=== PATIENT | female | born 1945 | race Caucasian/White ===

== ENCOUNTER 2017-04-28 13:04 | Outpatient (CLI) | payer MEDICARE, BC ==
[2017-04-28] MEDS ORDERED: Iopamidol 370 76% 100 ML VIAL ONE (13:59)
--- NOTE | 2017-04-28 14:54 | CT ---
CT ANGIOGRAM OF CHEST: Date: 04/28/17 COMPARISON: 11/18/16. HISTORY: Positive PE study in January 2017. Follow-up. TECHNIQUE: CT angiogram of the chest is performed in the axial plane. Coronal and oblique three-dimensional refo rmatted images are submitted for interpretation. FINDINGS: Trachea and central bronchi are patent. Dependent atelectatic change lung bases. No mass. No consolid ation. No pneumothorax or osseous abnormalities. No mediastinal mass, lymphadenopathy, or hematoma. Heart size is within normal limits. No pericardial effusion. The thoracic aorta and upper abdominal aorta have a normal caliber. No periaortic fat stra nding. Hypodensities in the liver are redemonstrated, compatible with multiple hepatic cysts. Stable fullnes s of left adrenal gland. Adequate contrast opacification of the pulmonary arterial system to the level of the segmental arteri es. No filling defect to suggest thromboembolism. IMPRESSION: 1. No evidence of pulmonary artery embolism. 2. Fullness of left adrenal gland, unchanged. Incomplete evaluation on this current exam. The lesion has been previously documented to be an adenoma. POS: EPIFANIO
== END 2017-04-28 13:05 | disposition home or self-care (01) ==
LOC: CT 13:04
PROVIDERS: ATTEND Internal Medicine Critical Care Medicine
DX: I26.99 Other pulmonary embolism without acute cor pulmonale (principal); E27.8 Other specified disorders of adrenal gland
CPT/HCPCS: 71275

== ENCOUNTER 2017-12-30 12:09 | Outpatient (CLI) | payer MEDICARE, BC ==
--- NOTE | 2017-12-30 14:05 | MRI ---
NONCONTRAST MRI LUMBAR SPINE: DATE: 12/30/17. HISTORY: Lumbar radiculopathy. Chronic low back pain which is getting worse. FINDINGS: A 2.4 cm oval-shaped focus of increased T2 and corresponding decreased T1 weighted signal intensity i s seen within the superior pole right kidney which is difficult to accurately characterize but statis tically likely represents a renal cyst. There is a subcentimeter increased T2 weighted signal intens ity focus seen within the mid portion left kidney which cannot be further characterized. A few tiny subcentimeter increased T2 weighted signal intensity foci are also seen within the right hepatic lobe which are difficult to characterize but statistically also may represent hepatic cysts. There is in complete imaging of a left adrenal nodule, but this adrenal nodule was seen on a CT of the abdomen in 2005 and demonstrated characteristics compatible with an adrenal adenoma on that examination. The r enal lesion as well s tiny hepatic lesions were not visualized on the prior CT exam. There is left convex rotoscoliosis of the lumbar spine. There are multilevel degenerative changes pr esent. There is heterogeneity of the bone marrow which may be related to conversion to red marrow. There is a rounded area of increased T1 and T2 weighted signal intensity seen within the S1 vertebral body measuring 1.5 cm most compatible with a hemangioma. L1-2 level: There is a broad-based disk-osteophyte complex present with mild facet degenerative weber ges. Findings result in mild bilateral neural foraminal narrowing, and there is also mild narrowing of the central spinal canal. L2-3 level: There is loss of intervertebral disk height with end plate degenerative changes present. There is a broad-based disk-osteophyte complex and facet hypertrophic changes. Findings result in mild to moderate right and mild left-sided neural foraminal narrowing. There is mild narrowing of th e central spinal canal with a greater degree of mass effect on the right anterolateral aspect of the thecal sac and likely encroachment on the traversing right S3 nerve root. L3-4 level: There is loss of intervertebral disk height. There is a broad-based disk-osteophyte com plex and facet hypertrophic changes. There is resultant mild narrowing of the central spinal canal a nd narrowing of the lateral recesses, primarily on the right. There is mild bilateral neural foramin al narrowing. L4-5 level: There is loss of intervertebral disk height. There is a broad-based disk-osteophyte com plex noted. Severe left-sided facet hypertrophic changes are seen. There is moderate narrowing of t he central spinal canal as well as the left lateral recess with severe left-sided neural foraminal na rrowing and mild right-sided neural foraminal narrowing. L5-S1 level: There is a mild broad-based disk-osteophyte complex. There are facet hypertrophic weber ges present. The disk-osteophyte complex does encroach on and may contact the traversing left S1 ner ve root without significant deformity or displacement of the S1 nerve root. There is moderate left-s ided neural foraminal narrowing with minimal right-sided neural foraminal narrowing. Conus medullaris is normal in appearance and demonstrates normal signal intensity terminating at the T12-L1 level. IMPRESSION: 1. 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 2. Subcentimeter too small to characterize increased T2 weighted signal intensity lesions in the rig ht hepatic lobe and in the left kidney likely attributable to tiny cysts but are difficult to further characterize due to very small size. 4. Right renal cyst. POS: EPIFANIO
== END 2017-12-30 12:10 | disposition home or self-care (01) ==
LOC: BICMRI 12:09
PROVIDERS: ATTEND Anesthesiology Pain Medicine
DX: M47.26 Other spondylosis with radiculopathy, lumbar region (principal); M41.9 Scoliosis, unspecified; N28.1 Cyst of kidney, acquired
CPT/HCPCS: 72110; 72148

== ENCOUNTER 2019-12-22 13:12 | Outpatient (CLI) | payer MEDICARE, BC ==
--- NOTE | 2019-12-22 14:02 | ULT ---
US Renal Bilateral STANDARD HISTORY: Renal lesion COMPARISON: None. FINDINGS: Right kidney measures 8.3 cm in length and the left kidney measures 9.2 cm in length. No hy dronephrosis seen on either side. There is a 2.3 x 1.7 x 1.5 cm cyst in the superomedial aspect of the right kidney. The bladder has a volume of 73 cc and is grossly unremarkable. IMPRESSION: Right renal cyst.
== END 2019-12-22 13:13 | disposition home or self-care (01) ==
LOC: SCSULT 13:12
PROVIDERS: ATTEND Nurse Practitioner Family
DX: N28.9 Disorder of kidney and ureter, unspecified (principal); N28.1 Cyst of kidney, acquired
CPT/HCPCS: 76770

== ENCOUNTER 2022-04-29 08:42 | Day surgery (SDC) | payer MEDICARE, BC ==
[2022-04-28 11:57] VITALS: BMI 23.3
[~2022-04-29 08:42] MED LIST: EPINEPHrine 0.3 MG in Ophthalmic Irrigation Solution 500 ML IRR SCH; Midazolam HCl 2 mg/2 ml Vial ONE; fentaNYL PF 100 MCG/2 ML SYRINGE ONE
[2022-04-29] MEDS ORDERED: Phenylephrine 2.5% Ophth Soln 5 ML BOT ONE (09:32)
[2022-04-29] MEDS ORDERED: Cyclopentolate 1% Opth Drop 2 ML BOT ONE (09:32)
[2022-04-29] MEDS ORDERED: Triamcinolone 40 MG/ML VIAL ONE (10:56)
[2022-04-29] MEDS ORDERED: Indocyanine Green 25 MG/10 ML VIAL ONE (10:56)
[2022-04-29] MEDS ORDERED: Lidocaine 4% PF 5 ML AMP ONE (10:56)
[2022-04-29] MEDS ORDERED: Maxitrol 0.1% Opth Oint 3.5 GM TUBE ONE (10:56)
[2022-04-29] MEDS ORDERED: Lidocaine 1% PF 5 ML VIAL ONE (10:56)
[2022-04-29] MEDS ORDERED: PROPOFOL 200 MG/20 ML VIAL ONE (10:56)
[2022-04-29] MEDS ORDERED: Bupivacaine 0.75% 10 ML VIAL ONE (10:56)
[2022-04-29] MEDS ORDERED: CEFAZOLIN 1 GM VIAL ONE (10:56)
== END 2022-04-29 12:14 | disposition home or self-care (01) ==
LOC: SDC 08:42
PROVIDERS: ATTEND Ophthalmology Retina Specialist
PROC: 08T53ZZ Resection of Left Vitreous, Percutaneous Approach (ICD-10-PCS; principal; 2022-04-29)
DX: H35.342 Macular cyst, hole, or pseudohole, left eye (principal); Z79.899 Other long term (current) drug therapy
CPT/HCPCS: 67025; J0171; J0690; J2250; J2704; J3301; J3490